=== PATIENT | female | born 1970 | race Caucasian/White ===

== ENCOUNTER 2018-04-08 10:28 | Emergency (ER) | payer MEDICAID ==
[~2018-04-08] VITALS: Ht 172.7 cm; Wt 61.2 kg
[2018-04-08 10:30] VITALS: BP 140/86
--- NOTE | 2018-04-08 10:44 | NUR ---
PATIENT IS A 47 YO FEMALE BIB [facility] FOR PRE BOOK EXAM, AWAKE AND ALERT ABLE TO AMBULATE NO MEDICAL HX OR C/O INJURY. TO CHAIR E FOR MD DUNN.
[2018-04-08 10:46] VITALS: BP 140/86
--- NOTE | 2018-04-08 10:46 | NUR ---
Patient discharged with v/s stable. Written and verbal after care instructions given and explained. Patient verbalized understanding. Police with in custody. All questions addressed prior to discharge. Advised to follow up with PMD.
== END 2018-04-08 10:46 ==
LOC: MED 10:28
DX: Z02.89 Encounter for other administrative examinations (principal)
CPT/HCPCS: 99283